=== PATIENT | male | born 1985 | race Caucasian/White ===

== ENCOUNTER 2016-08-04 20:10 | Emergency (ER) | payer BC ==
[~2016-08-04] VITALS: Ht 177.8 cm; Wt 87.5 kg
[~2016-08-04 20:10] MED LIST: ACET1TAB40 PO; CEPH-443 PO; FAMO40OR PO; MAG355OR14 PO; OMEP40CA6 PO
[2016-08-04 20:11] VITALS: Ht 177.8 cm; Wt 87.5 kg
[2016-08-04] MEDS ORDERED: CEPH-443 PO (20:47)
[2016-08-04] MEDS ORDERED: SULF1TAB31 PO (20:47)
[2016-08-04] MEDS ORDERED: IBUP-1542 PO (20:47)
[2016-08-04] MEDS ORDERED: HYDR-906 PO (20:47)
--- NOTE | 2016-08-04 20:57 | ERD ---
ER Documentation Chief Complaint Date/Time DATE: 08/04/16 TIME: 20:55 Chief Complaint abscess sacral area HPI 30-year-old male is here for an area of redness and swelling to his gluteal cleft that he has had for 1 week. He has had a pilonidal cyst in the past and he believes this is the same. Denies any bleeding or drainage. It is painful getting more painful and larger. Denies fever. He is ambulatory. ROS All systems reviewed and are negative except as per history of present illness. Medications Home Meds Active Scripts Hydrocodone/Acetaminophen ([place] 5-325 Tablet) 1 Each Tablet, 1 TAB PO Q6H Y for PAIN, #20 TAB Prov:POOJA WALLS PA-C 08/04/16 Cephalexin* (Keflex*) 500 Mg Capsule, 500 MG PO QID for 7 Days, CAP Prov:POOJA WALLS PA-C 08/04/16 Ibuprofen* (Motrin*) 600 Mg Tab, 600 MG PO Q6, #30 TAB Prov:POOJA WALLS PA-C 08/04/16 Sulfamethoxazole/Trimethoprim* (Bactrim Ds* Tablet) 1 Each Tablet, 1 TAB PO BID , #14 TAB Prov:POOJA WALLS PA-C 08/04/16 Omeprazole* (Omeprazole*) 40 Mg Capsule.dr, 40 MG PO DAILY, #30 CAP Prov:GLADYS LIMA MD 10/24/15 Famotidine* (Famotidine*) 40 Mg/5 Ml Oral.susp, 40 MG PO DAILY, #30 TAB Prov:GLADYS LIMA MD 10/24/15 Mag Hydrox/Al Hydrox/Simeth (Maalox Advanced Suspension) 355 Ml Oral.susp, 2 TSP PO TID for PAIN, #24 OZ Prov:GLADYS LIMA MD 10/24/15 Cephalexin* (Keflex*) 500 Mg Capsule, 500 MG PO QID for 7 Days, CAP Prov:LISA DIAZ MD 10/19/14 Acetaminophen-Codeine* (Acetaminophen-Cod #3*) 300-30 Mg Tab, 1 TAB PO Q4H Y for PAIN, #12 TAB Prov:LISA DIAZ MD 10/19/14 Reported Medications [None] No Conflict Check 09/27/09 Allergies Allergies: Coded Allergies: No Known Allergies (Verified Allergy, Mild, 09/27/09) PMhx/Soc Medical and Surgical Hx: pt denies Medical Hx History of Surgery: Yes (LEFT BIG TOE NAIL 2011. ) Anesthesia Reaction: No Hx Neurological Disorder: No Hx Respiratory Disorders: No Hx Cardiac Disorders: No Hx Psychiatric Problems: No Hx Miscellaneous Medical Probl: No Hx Alcohol Use: Yes (occasional) Hx Substance Use: No Hx Tobacco Use: No FmHx Family History: No diabetes Physical Exam Vitals Vital Signs Date Time Temp Pulse Resp B/P Pulse Ox O2 Delivery O2 Flow Rate FiO2 08/04/16 20:11 97.5 77 20 126/86 98 Physical Exam General: well developed, well nourished, alert, nontoxic, no distress Head: normocephalic, atraumatic Respiratory: Clear to auscaultation bilaterally, speaks in full sentences, no use of accesory muscles or labored breathing, no rales, ronchi, or wheezing Cardiovascular: RRR, No murmurs Skin: Redness and swelling at the top of the gluteal cleft consistent with pilonidal cyst Procedures/MDM Patient has pilonidal cyst. The area was prepped with Betadine 1% lidocaine was used to anesthetize the site. A small incision using an 11 blade was used to copious amounts of drainage was drained. Wound was dressed and bandaged she was given prescription for Bactrim, Keflex, ibuprofen and [place]. Recommended this patient follow up with her primary care doctor within 48 hours or return to the emergency room for any worsening of symptoms. However this time I do believe there is suitable for outpatient management. I answered all their questions and they agreed with the plan and were discharged home. Departure Diagnosis: Primary Impression: Pilonidal cyst Condition: Stable Patient Instructions: Pilonidal Cyst Additional Instructions: Call your primary care doctor TOMORROW for an appointment during the next 1-2 days.See the doctor sooner or return here if your condition worsens before your appointment time. POOJA WALLS PA-C Aug 04, 2016 20:57
== END 2016-08-04 21:09 | disposition home or self-care (01) ==
LOC: FTE 20:10
DX: L05.01 Pilonidal cyst with abscess (principal)